=== PATIENT | female | born 1960 | race Two or more races ===

== ENCOUNTER 2016-11-17 13:38 | Inpatient (IN) | payer MEDICARE, MEDICAID ==
[~2016-11-17] VITALS: Ht 157.5 cm; Wt 68.0 kg
[2016-11-17 14:00] VITALS: BP 144/77
[2016-11-17 14:04] LABS: ABG ALLEN TEST POSITIVE; ABG PCO2 46.2 mmHg (35.0-45.0)
--- NOTE | 2016-11-17 14:08 | Emergency Room Report ---
History of Present Illness General Chief Complaint: Chest Pain Source: Patient, EMS Present Illness HPI Patient is a 56-year-old female who presented after increased chest pain. The patient gradual onset of symptoms onset was during dialysis. Patient prior history of kidney disease. Patient had previous workup for similar symptoms and without any findings. Patient is normally dialyzed Tuesday and Tuesday. The patient reports having sharp pain worse with deep breath. The patient was given aspirin and nitroglycerin by paramedics. Allergies: Coded Allergies: ACETAMINOPHEN (Verified Allergy, Unknown, 11/17/16) Patient History Past Medical History: see triage record Reviewed Nursing Documentation: PMH: Agreed, PSxH: Agreed Nursing Documentation-PMH Past Medical History: No History, Except For Hx Hypertension: Yes - Hypothyroidism Hx Diabetes: Yes Hx Gastrointestinal Problems: Yes - GERD Hx Dialysis: Yes - M, W, F, ESRD History Of Psychiatric Problem: Yes - Depression Review of Systems All Other Systems: negative except mentioned in HPI Physical Exam Vital Signs Date Time Temp Pulse Resp B/P Pulse Ox O2 Delivery O2 Flow Rate FiO2 11/17/16 13:39 97.5 68 16 144/77 99 Room Air 11/17/16 14:00 2.0 Sp02 EP Interpretation: reviewed, normal General Appearance: normal inspection, well appearing, no apparent distress, alert, GCS 15 Head: atraumatic ENT: normal ENT inspection, hearing grossly normal, normal voice Neck: normal inspection, full range of motion, supple, no bony tend Respiratory: normal inspection, lungs clear, normal breath sounds, no respiratory distress, no retraction, no wheezing Cardiovascular #1: regular rate, rhythm, no edema Gastrointestinal: normal inspection, normal bowel sounds, non tender, soft, no guarding, no hernia Genitourinary: no CVA tenderness Musculoskeletal: normal inspection, back normal, normal range of motion Neurologic: normal inspection, alert, oriented x3, responsive, lathing supervisor III-XII nml as tested, speech normal Psychiatric: normal inspection, judgement/insight normal, mood/affect normal Skin: normal inspection, normal color, no rash Medical Decision Making Diagnostic Impression: Primary Impression: Chest pain Additional Impressions: ACS (acute coronary syndrome) Hyperkalemia ER Course Patient presented for chest pain. Differential diagnosis included but was not limited to acute coronary syndrome, pulmonary embolism, pneumonia, aortic dissection, shingles, pneumothorax, aortic dissection, esophageal rupture, pericarditis. Because of complexity of patient's case laboratory testing and imaging studies were ordered. EKG interpreted by me showed normal sinus rhythm with a rate of [address] or T wave changes.Laboratory testing showed mild hyperkalemia. The patient was noted to have a history of prior end-stage renal disease and was at least partially dialyzed earlier in the day. Chest x-ray one view interpreted by me showed normal cardiac size without evident infiltrate without pneumothorax. The patient was given Toradol and morphine for pain. The patient has multiple risk factors for coronary disease. A bedside ultrasound showed no evidence of pericardial effusion. Patient is admitted for further evaluation of chest pain and shortness of breath and treatment of hyperkalemia. Patient was discussed with Dr. Pittman for inpatient management. Labs Test 11/17/16 13:42 11/17/16 14:18 Arterial Blood pH 7.460 (7.350-7.450) Arterial Blood Partial Pressure CO2 46.2 mmHg (35.0-45.0) Arterial Blood Partial Pressure O2 112.8 mmHg (75.0-100.0) Arterial Blood HCO3 32.7 mmol/L (22.0-26.0) Arterial Blood Oxygen Saturation 98.1 % (92.0-98.0) Arterial Blood Base Excess 8.0 Rahat Test Positive White Blood Count 7.5 K/UL (4.8-10.8) Red Blood Count 4.40 M/UL (4.20-5.40) Hemoglobin 13.4 G/DL (12.0-16.0) Hematocrit 41.5 % (37.0-47.0) Mean Corpuscular Volume 94 FL (80-99) Mean Corpuscular Hemoglobin 30.4 PG (27.0-31.0) Mean Corpuscular Hemoglobin Concent 32.3 G/DL (32.0-36.0) Red Cell Distribution Width 13.8 % (11.6-14.8) Platelet Count 254 K/UL (150-450) Mean Platelet Volume 6.7 FL (6.5-10.1) Neutrophils (%) (Auto) 58.1 % (45.0-75.0) Lymphocytes (%) (Auto) 32.6 % (20.0-45.0) Monocytes (%) (Auto) 5.7 % (1.0-10.0) Eosinophils (%) (Auto) 2.6 % (0.0-3.0) Basophils (%) (Auto) 1.0 % (0.0-2.0) EKG Diagnostic Results Rate: normal Rhythm: NSR ST Segments: no acute changes ASA given to the pt in ED: No - ems Rhythm Strip Diag. Results EP Interpretation: yes Rhythm: NSR, no PVC's, no ectopy, other Chest X-Ray Diagnostic Results EP Interpretation: Yes Findings: no consolidation, no effusion, no pneumothorax, no acute cardiopulmonary disease Number of Views: 1 Last Vital Signs Date Time Temp Pulse Resp B/P Pulse Ox O2 Delivery O2 Flow Rate FiO2 11/17/16 14:00 68 16 Nasal Cannula 2.0 11/17/16 14:00 97.5 144/77 99 Status: unchanged Disposition: ADMITTED INPATIENT Condition: Serious Wade Watson Nov 17, 2016 14:08
[2016-11-17] MEDS ORDERED: Morphine Sulfate 2mg/ml Inj IVP ONE (14:30)
[2016-11-17] MEDS ORDERED: DuoNeb 0.5-3(2.5)mg/3ml neb HHN ONE (14:30)
[2016-11-17 14:32] LABS: EOSINOPHILS % (AUTO) 2.6 % (0.0-3.0); LYMPHOCYTES % (AUTO) 32.6 % (20.0-45.0); MEAN CORPUSCULAR HEMOGLOBIN 30.4 PG (27.0-31.0); MEAN CORPUSCULAR HGB CONC 32.3 G/DL (32.0-36.0); MEAN CORPUSCULAR VOLUME 94 FL (80-99); MEAN PLATELET VOLUME 6.7 FL (6.5-10.1); MONOCYTES % (AUTO) 5.7 % (1.0-10.0); NEUTROPHILS % (AUTO) 58.1 % (45.0-75.0); PLATELET COUNT 254 K/UL (150-450); RED CELL DISTRIBUTION WIDTH 13.8 % (11.6-14.8); WHITE BLOOD COUNT 7.5 K/UL (4.8-10.8)
[2016-11-17 14:37] VITALS: BP 151/65
[2016-11-17] MEDS ORDERED: UNOBMED (14:42)
[2016-11-17] MEDS ORDERED: DIOVAN160 MG ORAL (14:51)
[2016-11-17] MEDS ORDERED: HYDRALAZINE HCL50 MG ORAL (14:51)
[2016-11-17] MEDS ORDERED: COLACE100 MG ORAL (14:51)
[2016-11-17] MEDS ORDERED: AMLODIPINE BESY10 MG ORAL (14:51)
[2016-11-17] MEDS ORDERED: ATORVASTATIN CA40 MG ORAL (14:51)
[2016-11-17 14:54] LABS: TROPONIN I < 0.30 ng/mL (<=0.30)
[2016-11-17] MEDS ORDERED: RENVELA0.8 GM ORAL (14:54)
[2016-11-17] MEDS ORDERED: METOPROLOL TART25 MG ORAL (14:54)
[2016-11-17] MEDS ORDERED: PANTOPRAZOLE SO40 MG ORAL (14:54)
[2016-11-17] MEDS ORDERED: LEVEMIR100 UNIT/1 SUBQ (14:54)
[2016-11-17] MEDS ORDERED: TRAMADOL HCL50 MG ORAL (14:54)
[2016-11-17] MEDS ORDERED: [UNRECOGNIZED DRUG - OTHER] ORAL (14:55)
[2016-11-17 14:57] LABS: ALBUMIN/GLOBULIN RATIO 1.1 (1.0-2.7); CALCIUM 9.6 mg/dL (8.6-10.2); GLOMERULAR FILTRATION RATE 9.1 mL/min (>60); POTASSIUM 5.2 mEQ/L (3.4-4.9); TOTAL PROTEIN 8.1 g/dL (6.6-8.7)
[2016-11-17 15:08] LABS: CKMB 5.5 ng/mL (< 3.8)
[2016-11-17] MEDS ORDERED: Ketorolac 30mg Inj IV ONE (15:30)
[2016-11-17] MEDS ORDERED: Sodium Polystyrene Sulfonate 15gm Powder ORAL ONE (15:30)
--- NOTE | 2016-11-17 15:52 | Diagnostic Imaging Report ---
Indication: Breath Technique: Single portable AP view of the chest. Findings: Comparison: None. The bones and extra pulmonary soft tissues, cardiomediastinal silhouette, pulmonary vasculature and parenchyma, and pleural surfaces are unremarkable. IMPRESSION: Negative portable AP chest.
[2016-11-17 16:09] VITALS: BP 161/57
[2016-11-17] MEDS ORDERED: Miralax 17gm pkt ORAL PRN (18:00)
[2016-11-17] MEDS ORDERED: Nitroglycerin Subl 0.4mg tab (Bottle Of 25) SL PRN (18:15)
--- NOTE | 2016-11-17 18:16 | History and Physical ---
History of Present Illness General Date patient seen: Nov 17, 2016 Time patient seen: 18:16 Reason for Hospitalization: Chest Pain Present Illness HPI 56yo female with pmh of ESRD on HD (MWF), DM, HTN, HLD who presents w/ chest pain. Pt c/o L sided sharp sensation in chest that started abt 1/2 way through dialysis today. She has never had chest pain before. She denies associated f/c, n/v, cough, abd pain. Occasional SOB, palpitations, dizziness. She states she has been stressed and anxious recently since her daughter is trying to send her to a [facility]. She lives w/ her sister. She is functional and able to do all ADLs on own. She does not exercise much. Allergies: Coded Allergies: ACETAMINOPHEN (Verified Allergy, Unknown, 11/17/16) Medication History Scheduled Amlodipine Besylate* (Amlodipine Besylate*), 10 MG ORAL DAILY, (Reported) Atorvastatin Calcium* (Atorvastatin Calcium*), 40 MG ORAL BEDTIME, (Reported) Docusate Sodium* (Colace*), 100 MG ORAL BID, (Reported) Hydralazine Hcl* (Hydralazine Hcl*), 50 MG ORAL QID, (Reported) Insulin Detemir (Levemir), 12 UNITS SUBQ BID, (Reported) Metoprolol Tartrate* (Metoprolol Tartrate*), 25 MG ORAL EVERY 12 HOURS, ( Reported) Pantoprazole* (Pantoprazole*), 40 MG ORAL DAILY, (Reported) Sevelamer Carbonate* (Renvela*), 1,600 MG ORAL THREE TIMES A DAY, (Reported) Valsartan (Diovan), 320 MG ORAL DAILY, (Reported) [Aspirin Free Anacin], 1 TAB ORAL DAILY, (Reported) Scheduled PRN Tramadol Hcl* (Ultram*), 50 MG ORAL DAILY PRN for For Pain, (Reported) Miscellaneous Medications Unable to Obtain Medications (Unable To Obtain Meds), (Reported) Patient History History Provided By: Patient Healthcare decision maker Sister Resuscitation status FULL CODE Advanced Directive on File Past Medical/Surgical History Past Medical/Surgical History: (1) ESRD (end stage renal disease) on dialysis (2) HTN (hypertension) (3) HLD (hyperlipidemia) (4) Diabetes Family History Family History: Patient reports no known family medical history. Social History Social History: (1) No significant social history Review of Systems All Other Systems: negative except mentioned in HPI ROS Narrative CONSTITUTIONAL: No weight loss, fever, chills, weakness or fatigue. HEENT: Eyes: No visual loss, blurred vision, double vision or yellow sclerae. Ears, Nose, Throat: No hearing loss, sneezing, congestion, runny nose or sore throat. SKIN: No rash or itching. CARDIOVASCULAR: + chest pain, chest pressure or chest discomfort. No palpitations or edema. RESPIRATORY: No shortness of breath, cough or sputum. GASTROINTESTINAL: No anorexia, nausea, vomiting or diarrhea. No abdominal pain or blood. NEUROLOGICAL: No headache, dizziness, syncope, paralysis, ataxia, numbness or tingling in the extremities. No change in bowel or bladder control. MUSCULOSKELETAL: No muscle, back pain, joint pain or stiffness. HEMATOLOGIC: No anemia, bleeding or bruising. LYMPHATICS: No enlarged nodes. No history of splenectomy. PSYCHIATRIC: No history of depression or anxiety. ENDOCRINOLOGIC: No reports of sweating, cold or heat intolerance. No polyuria or polydipsia. ALLERGIES: No history of asthma, hives, eczema or rhinitis. Physical Exam Physical Exam Narrative General: alert, cooperative, no distress, appears stated age Head: normocephalic, without obvious abnormality, atraumatic Eyes: conjunctivae/corneas clear. PERRL, EOM's intact Throat: lips, mucosa, and tongue normal. MMM Neck: supple, symmetrical, trachea midline, and no JVD Lungs: clear to auscultation bilaterally Heart: regular rate and rhythm, S1, S2 normal, no murmur, click, rub or gallop Abdomen: soft, non-tender, non-distended, bowel sounds normal; no masses or organomegaly Extremities: extremities normal, atraumatic, no cyanosis or edema Pulses: 2+ and symmetric Skin: skin color, texture, turgor normal; no rashes or lesions Neurologic: grossly normal, no focal deficits Last 24 Hour Vital Signs Date Time Temp Pulse Resp B/P Pulse Ox O2 Delivery O2 Flow Rate FiO2 11/17/16 16:09 97.4 57 17 161/57 98 Nasal Cannula 2.0 11/17/16 16:03 97.4 11/17/16 14:52 97.5 11/17/16 14:38 59 20 100 Nasal Cannula 2.0 11/17/16 14:37 97.5 64 15 151/65 100 Nasal Cannula 2.0 11/17/16 14:34 59 20 100 Nasal Cannula 2.0 11/17/16 14:00 68 16 Nasal Cannula 2.0 11/17/16 14:00 97.5 16 144/77 99 Room Air 11/17/16 13:39 97.5 68 16 144/77 99 Room Air Laboratory Tests Test 11/17/16 13:42 11/17/16 14:18 Arterial Blood pH 7.460 (7.350-7.450) Arterial Blood Partial Pressure CO2 46.2 mmHg (35.0-45.0) H Arterial Blood Partial Pressure O2 112.8 mmHg (75.0-100.0) H Arterial Blood HCO3 32.7 mmol/L (22.0-26.0) H Arterial Blood Oxygen Saturation 98.1 % (92.0-98.0) H Arterial Blood Base Excess 8.0 Rahat Test Positive White Blood Count 7.5 K/UL (4.8-10.8) Red Blood Count 4.40 M/UL (4.20-5.40) Hemoglobin 13.4 G/DL (12.0-16.0) Hematocrit 41.5 % (37.0-47.0) Mean Corpuscular Volume 94 FL (80-99) Mean Corpuscular Hemoglobin 30.4 PG (27.0-31.0) Mean Corpuscular Hemoglobin Concent 32.3 G/DL (32.0-36.0) Red Cell Distribution Width 13.8 % (11.6-14.8) Platelet Count 254 K/UL (150-450) Mean Platelet Volume 6.7 FL (6.5-10.1) Neutrophils (%) (Auto) 58.1 % (45.0-75.0) Lymphocytes (%) (Auto) 32.6 % (20.0-45.0) Monocytes (%) (Auto) 5.7 % (1.0-10.0) Eosinophils (%) (Auto) 2.6 % (0.0-3.0) Basophils (%) (Auto) 1.0 % (0.0-2.0) D-Dimer 898 ng/mL (<500) H Sodium Level 142 mEQ/L (135-145) Potassium Level 5.2 mEQ/L (3.4-4.9) H Chloride Level 95 mEQ/L (98-107) L Carbon Dioxide Level 34 mEQ/L (20-30) H Anion Gap 13 (5-15) Blood Urea Nitrogen 28 mg/dL (7-23) H Creatinine 5.0 mg/dL (0.5-0.9) H Estimat Glomerular Filtration Rate 9.1 mL/min (>60) Glucose Level 124 mg/dL (74-106) H Calcium Level 9.6 mg/dL (8.6-10.2) Total Bilirubin 0.4 mg/dL (0.0-1.2) Aspartate Amino Transf (AST/SGOT) 22 U/L (5-40) Alanine Aminotransferase (ALT/SGPT) 12 U/L (3-33) Alkaline Phosphatase 160 U/L (35-104) H Total Creatine Kinase 125 U/L (26-140) Creatine Kinase MB 5.5 ng/mL (< 3.8) H Creatine Kinase MB Relative Index 4.4 Troponin I < 0.30 ng/mL (<=0.30) Total Protein 8.1 g/dL (6.6-8.7) Albumin 4.4 g/dL (3.5-5.2) Globulin 3.7 g/dL Albumin/Globulin Ratio 1.1 (1.0-2.7) Height (Feet): 5 Height (Inches): 2.00 Weight (Pounds): 150 Medications Current Medications Medications (Trade) Dose Ordered Sig/Selena Route PRN Reason Start Time Stop Time Status Last Admin Dose Admin Acetaminophen (Tylenol) 650 mg Q4H PRN ORAL Mild Pain (Pain Scale 1-3) 11/17/16 18:00 12/17/16 17:59 UNV Amlodipine Besylate (Norvasc) 10 mg DAILY ORAL 11/18/16 09:00 12/18/16 08:59 UNV Aspirin (ASA) 81 mg DAILY ORAL 11/18/16 09:00 12/18/16 08:59 UNV Aspirin (ASA) 325 mg ONCE ONCE ORAL 11/17/16 18:15 11/17/16 18:16 UNV Atorvastatin Calcium (Lipitor) 80 mg BEDTIME ORAL 11/17/16 21:00 12/17/16 20:59 UNV Bisacodyl (Dulcolax) 10 mg DAILYPRN PRN RECTAL Constipation 11/17/16 18:00 12/17/16 17:59 Docusate Sodium (Colace) 100 mg EVERY 12 HOURS ORAL 11/17/16 21:00 12/17/16 20:59 Hydralazine HCl (Apresoline) 50 mg QID ORAL 11/17/16 21:00 12/17/16 20:59 UNV Magnesium Hydroxide (Mom) 30 ml HSPRN PRN ORAL Constipation 11/17/16 21:00 12/17/16 20:59 Morphine Sulfate (Morphine Sulfate) 2 mg Q6H PRN IVP Moderate Pain (Pain Scale 4-6) 11/17/16 18:00 11/24/16 17:59 Morphine Sulfate (Morphine Sulfate) 4 mg Q6H PRN IVP Severe Pain (Pain Scale 7-10) 11/17/16 18:00 11/24/16 17:59 Nitroglycerin (Ntg) 0.4 mg Q5MIN X 3 DOSES PRN SL Prn Chest Pain 11/17/16 18:15 12/17/16 18:14 Polyethylene Glycol (Miralax) 17 gm DAILYPRN PRN ORAL Constipation 11/17/16 18:00 12/17/16 17:59 Assessment/Plan Problem List: (1) Chest pain ICD Codes: R07.9 - Chest pain, unspecified SNOMED: 58420775 (2) Hyperkalemia ICD Codes: E87.5 - Hyperkalemia SNOMED: 67840824 (3) ESRD (end stage renal disease) on dialysis ICD Codes: N18.6 - End stage renal disease; Z99.2 - Dependence on renal dialysis SNOMED: 656539733 (4) HTN (hypertension) ICD Codes: I10 - Essential (primary) hypertension SNOMED: 31934869 (5) HLD (hyperlipidemia) ICD Codes: E78.5 - Hyperlipidemia, unspecified SNOMED: 64585117 (6) Diabetes ICD Codes: E11.9 - Type 2 diabetes mellitus without complications SNOMED: 46064206 Status: stable Assessment/Plan Chest pain - ddx includes anginal/ACS vs GI etiology vs MSK vs anxiety - Admit to tele - Trend trop/EKG - Check TTE - Cardiology consulted - s/p kayexylate in ED for hyperkalemia - Nephrology consulted for continuation of HD in-house - Con ASA, statin - Cont home BP meds - Cont sevelamer - CAIO DVT Prophylaxis: SCD, HSQ Code Status: Full Hospital Classification Declaration: Based on this initial evaluation, and depending on the patient's clinical course, I anticipate that this patient will require hospitalization for 2-3 days for chest pain, hyperkalemia, and close respiratory/hemodynamic monitoring. Disposition: Once the patient is stable to leave the hospital, I anticipate the patient will likely be discharged to the following environment: home with HH vs SNF I spent 70 minutes on this patient's case, and 38 minutes were dedicated to counseling and/or care coordination. Discussed with patient/family, nursing staff, SW/CM, cardiology regarding clinical status, treatment course, and disposition planning. Time of note may not reflect time of encounter. Fransisco Meyer M.D. Nov 17, 2016 18:16
[2016-11-17 18:39] VITALS: BP 153/59
[2016-11-17 19:52] LABS: BASOPHILS % (AUTO) 1.2 % (0.0-2.0); EOSINOPHILS % (AUTO) 2.2 % (0.0-3.0); LYMPHOCYTES % (AUTO) 29.1 % (20.0-45.0); MEAN CORPUSCULAR HEMOGLOBIN 30.7 PG (27.0-31.0); MEAN CORPUSCULAR HGB CONC 32.9 G/DL (32.0-36.0); MEAN CORPUSCULAR VOLUME 93 FL (80-99); MEAN PLATELET VOLUME 6.3 FL (6.5-10.1); MONOCYTES % (AUTO) 9.5 % (1.0-10.0); NEUTROPHILS % (AUTO) 58.1 % (45.0-75.0); PLATELET COUNT 221 K/UL (150-450); RED BLOOD COUNT 3.92 M/UL (4.20-5.40)
[2016-11-17 20:05] VITALS: BP 145/57
[2016-11-17 20:35] VITALS: BP 145/58
[2016-11-17] MEDS ORDERED: Milk of Magnesia 30ml Ud ORAL PRN (21:00)
[2016-11-17] MEDS: Docusate 100mg cap ORAL SCH (21:08)
[2016-11-17] MEDS: HydrALAZINE 50mg tab ORAL SCH (21:08)
[2016-11-17] MEDS: Metoprolol 25mg tab ORAL SCH (21:08)
[2016-11-17] MEDS: Atorvastatin 80mg tab ORAL SCH (21:08)
[2016-11-17] MEDS: Renvela 800mg Pkt ORAL SCH (21:08)
[2016-11-17] MEDS: NovoLOG Insulin Flexpen SUBQ SCH (21:11)
--- NOTE | 2016-11-17 21:58 | Cardiology Progress Note ---
Assessment/Plan Assessment/Plan [id number] chest pain dm htn hypre lipidmeia esrd depression ekg non specific pt poor histrial multipl rf of rcad old record "neg perfusion november 2014" will have adenosine cardiolite stress test if prepeat torp neg echo Objective Last 24 Hour Vital Signs Date Time Temp Pulse Resp B/P Pulse Ox O2 Delivery O2 Flow Rate FiO2 11/17/16 21:08 65 145/58 11/17/16 21:08 145/58 11/17/16 20:35 97.5 65 20 145/58 97 Room Air 11/17/16 20:07 97.6 66 21 145/57 98 Nasal Cannula 2.0 11/17/16 20:05 97.6 66 21 145/57 98 Nasal Cannula 2.0 11/17/16 18:39 97.3 63 20 153/59 98 Nasal Cannula 2.0 11/17/16 16:09 97.4 57 17 161/57 98 Nasal Cannula 2.0 11/17/16 16:03 97.4 11/17/16 14:52 97.5 11/17/16 14:38 59 20 100 Nasal Cannula 2.0 11/17/16 14:37 97.5 64 15 151/65 100 Nasal Cannula 2.0 11/17/16 14:34 59 20 100 Nasal Cannula 2.0 11/17/16 14:00 68 16 Nasal Cannula 2.0 11/17/16 14:00 97.5 16 144/77 99 Room Air 11/17/16 13:39 97.5 68 16 144/77 99 Room Air Laboratory Tests Test 11/17/16 13:42 11/17/16 14:18 11/17/16 19:35 Arterial Blood pH 7.460 (7.350-7.450) Arterial Blood Partial Pressure CO2 46.2 mmHg (35.0-45.0) H Arterial Blood Partial Pressure O2 112.8 mmHg (75.0-100.0) H Arterial Blood HCO3 32.7 mmol/L (22.0-26.0) H Arterial Blood Oxygen Saturation 98.1 % (92.0-98.0) H Arterial Blood Base Excess 8.0 Rahat Test Positive White Blood Count 7.5 K/UL (4.8-10.8) 7.0 K/UL (4.8-10.8) Red Blood Count 4.40 M/UL (4.20-5.40) 3.92 M/UL (4.20-5.40) L Hemoglobin 13.4 G/DL (12.0-16.0) 12.0 G/DL (12.0-16.0) Hematocrit 41.5 % (37.0-47.0) 36.6 % (37.0-47.0) L Mean Corpuscular Volume 94 FL (80-99) 93 FL (80-99) Mean Corpuscular Hemoglobin 30.4 PG (27.0-31.0) 30.7 PG (27.0-31.0) Mean Corpuscular Hemoglobin Concent 32.3 G/DL (32.0-36.0) 32.9 G/DL (32.0-36.0) Red Cell Distribution Width 13.8 % (11.6-14.8) 14.0 % (11.6-14.8) Platelet Count 254 K/UL (150-450) 221 K/UL (150-450) Mean Platelet Volume 6.7 FL (6.5-10.1) 6.3 FL (6.5-10.1) L Neutrophils (%) (Auto) 58.1 % (45.0-75.0) 58.1 % (45.0-75.0) Lymphocytes (%) (Auto) 32.6 % (20.0-45.0) 29.1 % (20.0-45.0) Monocytes (%) (Auto) 5.7 % (1.0-10.0) 9.5 % (1.0-10.0) Eosinophils (%) (Auto) 2.6 % (0.0-3.0) 2.2 % (0.0-3.0) Basophils (%) (Auto) 1.0 % (0.0-2.0) 1.2 % (0.0-2.0) D-Dimer 898 ng/mL (<500) H Sodium Level 142 mEQ/L (135-145) Potassium Level 5.2 mEQ/L (3.4-4.9) H Chloride Level 95 mEQ/L (98-107) L Carbon Dioxide Level 34 mEQ/L (20-30) H Anion Gap 13 (5-15) Blood Urea Nitrogen 28 mg/dL (7-23) H Creatinine 5.0 mg/dL (0.5-0.9) H Estimat Glomerular Filtration Rate 9.1 mL/min (>60) Glucose Level 124 mg/dL (74-106) H Calcium Level 9.6 mg/dL (8.6-10.2) Total Bilirubin 0.4 mg/dL (0.0-1.2) Aspartate Amino Transf (AST/SGOT) 22 U/L (5-40) Alanine Aminotransferase (ALT/SGPT) 12 U/L (3-33) Alkaline Phosphatase 160 U/L (35-104) H Total Creatine Kinase 125 U/L (26-140) Creatine Kinase MB 5.5 ng/mL (< 3.8) H Creatine Kinase MB Relative Index 4.4 Troponin I < 0.30 ng/mL (<=0.30) Total Protein 8.1 g/dL (6.6-8.7) Albumin 4.4 g/dL (3.5-5.2) Globulin 3.7 g/dL Albumin/Globulin Ratio 1.1 (1.0-2.7) MARY CORBETT Nov 17, 2016 21:58
--- NOTE | 2016-11-17 23:38 | Consultation ---
DATE OF CONSULTATION: 11/17/2016 CARDIOLOGY CONSULTATION CONSULTING PHYSICIAN: Michael Aceves M.D. REFERRING PHYSICIAN: Anish Marrufo M.D. REASON FOR REFERRAL: Chest pain. HISTORY OF PRESENT ILLNESS: This is a middle-aged female with history of multiple medical problems as delineated below, who presented with chief complaint of chest pain and sharp sensation in the left side of the chest. Really no relieving or exacerbating factors were noted by the patient. She really does not know how long the pain lasts. She thinks on questioning of approximately one hour. She finally presented to the emergency room here and she has been evaluated and admitted. She has no orthopnea. She uses two pillows. She does occasionally get woken up in the middle of the night because of shortness of breath, walks, drink some water, and then goes back to bed. She has occasional dizziness on standing. She has occasional palpitations. PAST MEDICAL HISTORY: Positive for history of cardiomyopathy reportedly. Prior records from different hospitals indicate that the patient once had an ejection fraction of 40% to 45% to subsequently 50% to 55%. She has end-stage renal disease, on hemodialysis, diabetes mellitus type 2, chronic migraines, gastroesophageal reflux disease, hypothyroidism, and depression. She has had a history of cholecystectomy, ulnar nerve decompression, and dialysis port placement. No history of heart attack. No cancer. No stroke. No hepatitis. No tuberculosis. She does indicate she has asthma. She does have history of ulcers. She does have history of thyroid problems. Does not have HIV and she has not been told she has any problems with her heart before she says. SOCIAL HISTORY: She does not smoke. Does not drink alcoholic beverages at this time. No drug use. She is originally from [place]. REVIEW OF SYSTEMS: Gastrointestinal: She denies any nausea, vomiting, diarrhea, or constipation. Genitourinary: Burning on urination. She does make urine despite hemodialysis. Pulmonary: Denies any coughing or wheezing. Constitutional: She gets cold sometimes. PHYSICAL EXAMINATION: GENERAL: Shows to be the middle-aged female, in no apparent distress. NECK: Supple. No jugular venous distention. There is a Osullivan in the left side of the neck may be from her shunt. LUNGS: Appear to be relatively clear to auscultation and percussion. CARDIAC: S1 is normal. S2 is normal. Systolic ejection murmur is noted in the aortic band. There is no RV lift, heaves, thrills, or gallops noted. ABDOMEN: Soft and nontender. Positive bowel sounds. EXTREMITIES: There is no edema. She has a shunt in the left arm. NEUROLOGICALLY: She is awake, alert, and responsive. LABORATORY AND DIAGNOSTIC DATA: White count of 5.7, hemoglobin 12, and platelet count of 221,000. Blood gases, pH of 7.4, pCO2 of 43, pO2 of 112, bicarb 33, and saturation 98%. Sodium 140, potassium 5.2, chloride 95, bicarbonate 24, BUN of 20, creatinine 5.0, and glucose of 124. Liver function tests are normal. Troponin first set this afternoon was less than 0.3. D-dimer is 898. She had a chest x-ray performed in the emergency room that shows basically negative portable x-ray. She has had electrocardiogram performed that shows basically a sinus rhythm and really no significant ST-T wave abnormalities. There is some nonspecific T-wave inversion aVL. ASSESSMENT: 1. Chest pain. 2. History of previous chest pain evaluation by customer project manager, unknown details. 3. End-stage renal disease, on hemodialysis. 4. Questionable report of left ventricular dysfunction. 5. Diabetes mellitus type 2. 6. Gastroesophageal reflux disease. 7. Hypothyroidism. 8. Depression. PLAN: This patient was seen in cardiac consultation. The patient has multiple risk factors of coronary artery disease, not sure about the details of her prior workup, although there is a note in the chart from 2014 indicating that in November 2014, the patient had subsided a stress test, which was found to have no myocardial perfusion defect at that time. Nevertheless because of her persistent symptoms, it is reasonable to have perfusion imaging in light of multiple risk factors of coronary artery disease and the patient is being somewhat a poor historian to make sure there is no underlying coronary artery disease despite the fact that, especially if she has no evidence of myocardial infarction on this study on this hospitalization. An echocardiogram will be ordered for evaluation of systolic function and aortic valve. The patient will undergo an adenosine perfusion imaging. Michael Aceves M.D. DR: [place] JOB#: [id number] CC:
[2016-11-18 00:21] VITALS: BP 106/58
[2016-11-18 00:41] LABS: TROPONIN I < 0.30 ng/mL (<=0.30)
[2016-11-18 04:07] VITALS: BP 132/68
[2016-11-18] MEDS: Morphine Sulfate 2mg/ml Inj IVP PRN ×2 (05:27→11:38)
[2016-11-18] MEDS: HydrALAZINE 50mg tab ORAL SCH ×4 (05:39→22:12)
[2016-11-18] MEDS: NovoLOG Insulin Flexpen SUBQ SCH ×4 (06:12→21:00)
[2016-11-18 07:50] LABS: TROPONIN I < 0.30 ng/mL (<=0.30)
[2016-11-18 07:51] LABS: BASOPHILS % (AUTO) 1.6 % (0.0-2.0); EOSINOPHILS % (AUTO) 3.9 % (0.0-3.0); LYMPHOCYTES % (AUTO) 36.4 % (20.0-45.0); MEAN CORPUSCULAR HEMOGLOBIN 31.1 PG (27.0-31.0); MEAN CORPUSCULAR HGB CONC 32.3 G/DL (32.0-36.0); MEAN CORPUSCULAR VOLUME 96 FL (80-99); MONOCYTES % (AUTO) 10.5 % (1.0-10.0); NEUTROPHILS % (AUTO) 47.6 % (45.0-75.0); PLATELET COUNT 192 K/UL (150-450); RED BLOOD COUNT 3.73 M/UL (4.20-5.40); RED CELL DISTRIBUTION WIDTH 13.9 % (11.6-14.8); WHITE BLOOD COUNT 5.7 K/UL (4.8-10.8)
[2016-11-18 08:08] LABS: CHOLESTEROL/HDL RATIO 1.9 (3.3-4.4); GLOMERULAR FILTRATION RATE 6.1 mL/min (>60); POTASSIUM 5.6 mEQ/L (3.4-4.9)
[2016-11-18 08:14] LABS: THYROID STIMULATING HORMONE 6.11 uIU/mL (0.300-4.500)
[2016-11-18] MEDS: Metoprolol 25mg tab ORAL SCH ×2 (08:21→21:00)
[2016-11-18 08:22] VITALS: BP 116/57
[2016-11-18] MEDS: Aspirin Baby 81mg ORAL SCH (08:57)
[2016-11-18] MEDS: Docusate 100mg cap ORAL SCH ×3 (08:57→17:31)
[2016-11-18] MEDS: Renvela 800mg Pkt ORAL SCH ×3 (08:58→17:31)
--- NOTE | 2016-11-18 10:17 | General Progress Note ---
Assessment/Plan Problem List: (1) Chest pain ICD Codes: R07.9 - Chest pain, unspecified SNOMED: 92441187 (2) Hyperkalemia ICD Codes: E87.5 - Hyperkalemia SNOMED: 77762852 (3) ESRD (end stage renal disease) on dialysis ICD Codes: N18.6 - End stage renal disease; Z99.2 - Dependence on renal dialysis SNOMED: 964065064 (4) HTN (hypertension) ICD Codes: I10 - Essential (primary) hypertension SNOMED: 18680256 (5) HLD (hyperlipidemia) ICD Codes: E78.5 - Hyperlipidemia, unspecified SNOMED: 38368440 (6) Diabetes ICD Codes: E11.9 - Type 2 diabetes mellitus without complications SNOMED: 66181392 Status: stable Assessment/Plan Chest pain - ddx includes anginalvs GI etiology vs MSK vs anxiety. Trop/EKG neg x3 so no e/o ACS. - Monitor on tele - F/u TTE - F/u MPI - Appreciate cardiology rec's - s/p kayexylate in ED for hyperkalemia - Nephrology consulted for continuation of HD in-house - Con ASA, statin - Cont home BP meds - Cont sevelamer - CAIO DVT Prophylaxis: SCD, HSQ Code Status: Full Hospital Classification Declaration: Based on this initial evaluation, and depending on the patient's clinical course, I anticipate that this patient will require hospitalization for 1-2 days for chest pain, hyperkalemia, and close respiratory/hemodynamic monitoring. Disposition: Once the patient is stable to leave the hospital, I anticipate the patient will likely be discharged to the following environment: home with HH vs SNF I spent 42 minutes on this patient's case, and 22 minutes were dedicated to counseling and/or care coordination. Discussed with patient/family, nursing staff, SW/CM, cardiology regarding clinical status, treatment course, and disposition planning. Time of note may not reflect time of encounter. Subjective Date patient seen: Nov 18, 2016 Time patient seen: 10:17 ROS Limited/Unobtainable: No Constitutional: Reports: no symptoms HEENT: Reports: no symptoms Cardiovascular: Reports: no symptoms Respiratory: Reports: no symptoms Gastrointestinal/Abdominal: Reports: no symptoms Genitourinary: Reports: no symptoms Neurologic/Psychiatric: Reports: no symptoms Endocrine: Reports: no symptoms Hematologic/Lymphatic: Reports: no symptoms Allergies: Coded Allergies: ACETAMINOPHEN (Verified Allergy, Unknown, 11/17/16) All Systems: reviewed and negative except above Subjective No acute o/n events Chest pain improved Plan for MPI today Objective Last 24 Hour Vital Signs Date Time Temp Pulse Resp B/P Pulse Ox O2 Delivery O2 Flow Rate FiO2 11/18/16 08:58 65 116/57 11/18/16 08:22 98.1 65 18 116/57 97 Room Air 11/18/16 08:21 65 116/57 11/18/16 05:39 132/68 11/18/16 04:07 98.5 84 18 132/68 96 Room Air 11/18/16 04:00 61 11/18/16 00:21 98.7 104 18 106/58 98 Room Air 11/18/16 00:00 63 11/18/16 00:00 106/58 11/17/16 21:08 65 145/58 11/17/16 21:08 145/58 11/17/16 20:35 97.5 65 20 145/58 97 Room Air 11/17/16 20:07 97.6 66 21 145/57 98 Nasal Cannula 2.0 11/17/16 20:05 97.6 66 21 145/57 98 Nasal Cannula 2.0 11/17/16 18:39 97.3 63 20 153/59 98 Nasal Cannula 2.0 11/17/16 16:09 97.4 57 17 161/57 98 Nasal Cannula 2.0 11/17/16 16:03 97.4 11/17/16 14:52 97.5 11/17/16 14:38 59 20 100 Nasal Cannula 2.0 11/17/16 14:37 97.5 64 15 151/65 100 Nasal Cannula 2.0 11/17/16 14:34 59 20 100 Nasal Cannula 2.0 11/17/16 14:00 68 16 Nasal Cannula 2.0 11/17/16 14:00 97.5 16 144/77 99 Room Air 11/17/16 13:39 97.5 68 16 144/77 99 Room Air Intake and Output 11/17/16 11/18/16 19:00 07:00 Intake Total 90 ml 240 ml Balance 90 ml 240 ml Intake Oral 60 ml 240 ml IV Total 30 ml Laboratory Tests 11/17/16 13:42: Arterial Blood pH 7.460H, Arterial Blood Partial Pressure CO2 46.2H, Arterial Blood Partial Pressure O2 112.8H, Arterial Blood HCO3 32.7H, Arterial Blood Oxygen Saturation 98.1H, Arterial Blood Base Excess 8.0, Rahat Test Positive 11/17/16 14:18: White Blood Count 7.5, Red Blood Count 4.40, Hemoglobin 13.4, Hematocrit 41.5, Mean Corpuscular Volume 94, Mean Corpuscular Hemoglobin 30.4, Mean Corpuscular Hemoglobin Concent 32.3, Red Cell Distribution Width 13.8, Platelet Count 254, Mean Platelet Volume 6.7, Neutrophils (%) (Auto) 58.1, Lymphocytes (%) (Auto) 32.6, Monocytes (%) (Auto) 5.7, Eosinophils (%) (Auto) 2.6, Basophils (%) (Auto ) 1.0, D-Dimer 898H, Sodium Level 142, Potassium Level 5.2H, Chloride Level 95L , Carbon Dioxide Level 34H, Anion Gap 13, Blood Urea Nitrogen 28H, Creatinine 5.0H, Estimat Glomerular Filtration Rate 9.1, Glucose Level 124H, Calcium Level 9.6, Total Bilirubin 0.4, Aspartate Amino Transf (AST/SGOT) 22, Alanine Aminotransferase (ALT/SGPT) 12, Alkaline Phosphatase 160H, Total Creatine Kinase 125, Creatine Kinase MB 5.5H, Creatine Kinase MB Relative Index 4.4, Troponin I < 0.30, Total Protein 8.1, Albumin 4.4, Globulin 3.7, Albumin/ Globulin Ratio 1.1 11/17/16 19:35: White Blood Count 7.0, Red Blood Count 3.92L, Hemoglobin 12.0, Hematocrit 36.6L , Mean Corpuscular Volume 93, Mean Corpuscular Hemoglobin 30.7, Mean Corpuscular Hemoglobin Concent 32.9, Red Cell Distribution Width 14.0, Platelet Count 221, Mean Platelet Volume 6.3L, Neutrophils (%) (Auto) 58.1, Lymphocytes ( %) (Auto) 29.1, Monocytes (%) (Auto) 9.5, Eosinophils (%) (Auto) 2.2, Basophils (%) (Auto) 1.2 11/18/16 00:00: Troponin I < 0.30 11/18/16 06:35: White Blood Count 5.7, Red Blood Count 3.73L, Hemoglobin 11.6L, Hematocrit 35.9L , Mean Corpuscular Volume 96, Mean Corpuscular Hemoglobin 31.1H, Mean Corpuscular Hemoglobin Concent 32.3, Red Cell Distribution Width 13.9, Platelet Count 192, Mean Platelet Volume 7.0, Neutrophils (%) (Auto) 47.6, Lymphocytes (% ) (Auto) 36.4, Monocytes (%) (Auto) 10.5H, Eosinophils (%) (Auto) 3.9H, Basophils (%) (Auto) 1.6, Sodium Level 141, Potassium Level 5.6H, Chloride Level 94L, Carbon Dioxide Level 33H, Anion Gap 14, Blood Urea Nitrogen 41H, Creatinine 7.0H, Estimat Glomerular Filtration Rate 6.1, Glucose Level 89, Hemoglobin A1c 6.5H, Calcium Level 9.0, Troponin I < 0.30, Pro-B-Type Natriuretic Peptide 37217U, Triglycerides Level 102, Cholesterol Level 103, LDL Cholesterol 28L, HDL Cholesterol 55, Cholesterol/HDL Ratio 1.9L, Thyroid Stimulating Hormone (TSH) 6.110H Height (Feet): 5 Height (Inches): 2.00 Weight (Pounds): 150 Objective General: alert, cooperative, no distress, appears stated age Head: normocephalic, without obvious abnormality, atraumatic Eyes: conjunctivae/corneas clear. PERRL, EOM's intact Throat: lips, mucosa, and tongue normal. MMM Neck: supple, symmetrical, trachea midline, and no JVD Lungs: clear to auscultation bilaterally Heart: regular rate and rhythm, S1, S2 normal, no murmur, click, rub or gallop Abdomen: soft, non-tender, non-distended, bowel sounds normal; no masses or organomegaly Extremities: extremities normal, atraumatic, no cyanosis or edema Pulses: 2+ and symmetric Skin: skin color, texture, turgor normal; no rashes or lesions Neurologic: grossly normal, no focal deficits Fransisco Meyer M.D. Nov 18, 2016 10:17
[2016-11-18] MEDS ORDERED: Sodium Polystyrene Sulfonate 15gm Powder ORAL ONE (10:30)
--- NOTE | 2016-11-18 11:13 | Consultation ---
Consult Note Consult Note I was asked to evaluate the patient for dialysis treatment Patient is a 56-year-old female who presented after increased chest pain. The patient gradual onset of symptoms onset was during dialysis. Patient prior history of kidney disease. Patient had previous workup for similar symptoms and without any findings. Patient is normally dialyzed Tuesday and Tuesday. The patient reports having sharp pain worse with deep breath. The patient was given aspirin and nitroglycerin by paramedics. Allergies: ACETAMINOPHEN (Verified Allergy, Unknown, 11/17/16) Past Medical History: No History, Except For Hx Hypertension: Yes - Hypothyroidism Hx Diabetes: Yes Hx Gastrointestinal Problems: Yes - GERD Hx Dialysis: Yes - M, W, F, ESRD History Of Psychiatric Problem: Yes - Depression Patient interviewed and examined- data reviewed. Discussed with knock out hand/Plan status; ESRD ACS High K plan: HD in am- Kayexelate PO now- Renal diet- BP meds adjustments- 2 D echo Per cardiology RAGHAVENDRA ARIZMENDI Nov 18, 2016 11:13
[2016-11-18 11:47] VITALS: BP 147/69
[2016-11-18 14:18] LABS: TROPONIN I < 0.30 ng/mL (<=0.30)
--- NOTE | 2016-11-18 14:35 | Cardiology Report ---
APPROVED REPORT EXAM: Two-dimensional and M-mode echocardiogram with Doppler and color Doppler. INDICATION Chest Pain M-Mode DIMENSIONS IVSd1.0 (0.7-1.1cm)Left Atrium (MM)4.4 (1.6-4.0cm) LVDd5.0 (3.5-5.6cm)Aortic Root2.8 (2.0-3.7cm) PWd1.1 (0.7-1.1cm)Aortic Cusp Exc.1.6 (1.5-2.0cm) LVDs3.3 (2.5-4.0cm) PWs1.4 cm Normal left ventricular chamber size, systolic function and wall motion. Left ventricular ejection fraction estimated to be 60 %. Mild left ventricular hypertrophy. Anterior Echo-free space, may be due to pericardial fat or effusion. Mild left atrial enlargement. Right cardiac chamber sizes are within normal limits. Mild focal aortic valve sclerosis with adequate cusp excursion. Mildly thickened mitral valve leaflets with normal excursion. Mitral annulus and aortic root calcification. Pulmonic valve not well visualized. Normal tricuspid valve structure. IVC at normal size with physiologic collapse. A color flow and spectral Doppler study was performed and revealed: Mild mitral regurgitation. Mitral diastolic velocities suggest reduced left ventricular relaxation c/w mild LV diastolic dysfunction (Grade I). Trace to mild tricuspid regurgitation. Tricuspid systolic velocities suggests peak right ventricular systolic pressure of 35 mmHg, consistent with borderline mild pulmonary hypertension. Trace pulmonic regurgitation present.
[2016-11-18 16:00] VITALS: BP 106/49
[2016-11-18 20:00] VITALS: BP 124/58
[2016-11-18] MEDS: Morphine Sulfate 4mg/ml Inj IVP PRN (20:39)
--- NOTE | 2016-11-18 21:19 | Cardiology Progress Note ---
Assessment/Plan Assessment/Plan chest pain dm htn hypre lipidmeia esrd depression ekg non specific pt poor historian multipl rf of rcad old record "neg perfusion november 2014" stress testnot complete today as vomitted to be preformed tomorrow echo prelim ok Subjective Cardiovascular: Denies: chest pain Respiratory: Denies: shortness of breath Gastrointestinal/Abdominal: Reports: nausea, vomiting, Denies: abdominal pain Genitourinary: Denies: burning Objective Last 24 Hour Vital Signs Date Time Temp Pulse Resp B/P Pulse Ox O2 Delivery O2 Flow Rate FiO2 11/18/16 20:00 99.0 69 20 124/58 95 Room Air 11/18/16 16:00 65 11/18/16 16:00 97.7 61 20 106/49 99 Room Air 11/18/16 14:07 147/69 11/18/16 12:00 62 11/18/16 11:47 97.0 68 20 147/69 95 Room Air 11/18/16 08:58 65 116/57 11/18/16 08:22 98.1 65 18 116/57 97 Room Air 11/18/16 08:21 65 116/57 11/18/16 08:00 64 11/18/16 05:39 132/68 11/18/16 04:07 98.5 84 18 132/68 96 Room Air 11/18/16 04:00 61 11/18/16 00:21 98.7 104 18 106/58 98 Room Air 11/18/16 00:00 63 11/18/16 00:00 106/58 General Appearance: no apparent distress, alert Cardiovascular: normal rate, regular rhythm Respiratory/Chest: lungs clear, normal breath sounds Abdomen: normal bowel sounds, non tender, soft Extremities: no swelling Intake and Output 11/17/16 11/18/16 19:00 07:00 Intake Total 90 ml 240 ml Balance 90 ml 240 ml Intake Oral 60 ml 240 ml IV Total 30 ml Laboratory Tests Test 11/18/16 00:00 11/18/16 06:35 11/18/16 13:50 Troponin I < 0.30 ng/mL (<=0.30) < 0.30 ng/mL (<=0.30) < 0.30 ng/mL (<=0.30) White Blood Count 5.7 K/UL (4.8-10.8) Red Blood Count 3.73 M/UL (4.20-5.40) L Hemoglobin 11.6 G/DL (12.0-16.0) L Hematocrit 35.9 % (37.0-47.0) L Mean Corpuscular Volume 96 FL (80-99) Mean Corpuscular Hemoglobin 31.1 PG (27.0-31.0) H Mean Corpuscular Hemoglobin Concent 32.3 G/DL (32.0-36.0) Red Cell Distribution Width 13.9 % (11.6-14.8) Platelet Count 192 K/UL (150-450) Mean Platelet Volume 7.0 FL (6.5-10.1) Neutrophils (%) (Auto) 47.6 % (45.0-75.0) Lymphocytes (%) (Auto) 36.4 % (20.0-45.0) Monocytes (%) (Auto) 10.5 % (1.0-10.0) H Eosinophils (%) (Auto) 3.9 % (0.0-3.0) H Basophils (%) (Auto) 1.6 % (0.0-2.0) Sodium Level 141 mEQ/L (135-145) Potassium Level 5.6 mEQ/L (3.4-4.9) H Chloride Level 94 mEQ/L (98-107) L Carbon Dioxide Level 33 mEQ/L (20-30) H Anion Gap 14 (5-15) Blood Urea Nitrogen 41 mg/dL (7-23) H Creatinine 7.0 mg/dL (0.5-0.9) H Estimat Glomerular Filtration Rate 6.1 mL/min (>60) Glucose Level 89 mg/dL (74-106) Hemoglobin A1c 6.5 % (< 6.0) H Calcium Level 9.0 mg/dL (8.6-10.2) Pro-B-Type Natriuretic Peptide 80739 pg/mL (0-125) H Triglycerides Level 102 mg/dL (< 150) Cholesterol Level 103 mg/dL (< 200) LDL Cholesterol 28 mg/dL (60-99) L HDL Cholesterol 55 mg/dL (> 60) Cholesterol/HDL Ratio 1.9 (3.3-4.4) L Thyroid Stimulating Hormone (TSH) 6.110 uIU/mL (0.300-4.500) MARY CORBETT Nov 18, 2016 21:18
[2016-11-18] MEDS: Atorvastatin 80mg tab ORAL SCH (22:12)
[2016-11-19] VITALS: BP 136/58
[2016-11-19 04:00] VITALS: BP 125/61
[2016-11-19] MEDS: HydrALAZINE 50mg tab ORAL SCH ×3 (06:00→22:35)
[2016-11-19] MEDS: NovoLOG Insulin Flexpen SUBQ SCH ×4 (06:20→22:36)
[2016-11-19 07:26] LABS: BASOPHILS % (AUTO) 1.1 % (0.0-2.0); EOSINOPHILS % (AUTO) 3.7 % (0.0-3.0); LYMPHOCYTES % (AUTO) 32.4 % (20.0-45.0); MEAN CORPUSCULAR HEMOGLOBIN 30.9 PG (27.0-31.0); MEAN CORPUSCULAR HGB CONC 32.8 G/DL (32.0-36.0); MEAN CORPUSCULAR VOLUME 94 FL (80-99); MEAN PLATELET VOLUME 6.9 FL (6.5-10.1); MONOCYTES % (AUTO) 10.6 % (1.0-10.0); NEUTROPHILS % (AUTO) 52.3 % (45.0-75.0); PLATELET COUNT 214 K/UL (150-450); RED BLOOD COUNT 3.72 M/UL (4.20-5.40); WHITE BLOOD COUNT 6.4 K/UL (4.8-10.8)
[2016-11-19 08:01] LABS: ALANINE AMINOTRANSFERASE 52 U/L (3-33); ALBUMIN/GLOBULIN RATIO 1.2 (1.0-2.7); ANION GAP 18 (5-15); ASPARTATE AMINO TRANSFERASE 57 U/L (5-40); CALCIUM 8.5 mg/dL (8.6-10.2); CARBON DIOXIDE 32 mEQ/L (20-30); CHLORIDE 90 mEQ/L (98-107); CHOLESTEROL 104 mg/dL (< 200); CHOLESTEROL/HDL RATIO 2.3 (3.3-4.4); CRP QUANT < 0.3 mg/dL (< 0.5); GLOMERULAR FILTRATION RATE 4.6 mL/min (>60); HEMOLYSIS 3; LDL CHOLESTEROL (CALC.) 29 mg/dL (60-99); MAGNESIUM 2.4 mg/dL (1.7-2.5); PHOSPHORUS 7.7 mg/dL (2.5-4.8); POTASSIUM 5.2 mEQ/L (3.4-4.9); SODIUM 140 mEQ/L (135-145); TOTAL PROTEIN 6.4 g/dL (6.6-8.7); URIC ACID 6.1 mg/dL (3.0-7.5)
[2016-11-19 08:03] VITALS: BP 130/52
[2016-11-19 08:11] LABS: HEMOGLOBIN A1C 6.3 % (< 6.0)
[2016-11-19] MEDS: Aspirin Baby 81mg ORAL SCH (08:47)
[2016-11-19] MEDS: Metoprolol 25mg tab ORAL SCH ×2 (08:47→22:35)
[2016-11-19] MEDS: Docusate 100mg cap ORAL SCH ×3 (08:47→17:59)
[2016-11-19] MEDS: Renvela 800mg Pkt ORAL SCH ×3 (08:47→17:59)
--- NOTE | 2016-11-19 09:05 | General Progress Note ---
Assessment/Plan Problem List: (1) Chest pain ICD Codes: R07.9 - Chest pain, unspecified SNOMED: 02364848 (2) Hyperkalemia ICD Codes: E87.5 - Hyperkalemia SNOMED: 78466394 (3) ESRD (end stage renal disease) on dialysis ICD Codes: N18.6 - End stage renal disease; Z99.2 - Dependence on renal dialysis SNOMED: 713521517 (4) HTN (hypertension) ICD Codes: I10 - Essential (primary) hypertension SNOMED: 73665733 (5) HLD (hyperlipidemia) ICD Codes: E78.5 - Hyperlipidemia, unspecified SNOMED: 75128891 (6) Diabetes ICD Codes: E11.9 - Type 2 diabetes mellitus without complications SNOMED: 05947378 Qualifiers: Status: stable Assessment/Plan Chest pain - ddx includes anginal vs GI etiology vs MSK vs anxiety. Trop/EKG neg x3 so no e/o ACS. - Monitor on tele - F/u MPI - Appreciate cardiology rec's - s/p kayexylate in ED for hyperkalemia - Nephrology consulted for continuation of HD in-house - Plan for HD today - Con ASA, statin - Cont home BP meds - Cont sevelamer - CAIO DVT Prophylaxis: SCD, HSQ Code Status: Full Hospital Classification Declaration: Based on this initial evaluation, and depending on the patient's clinical course, I anticipate that this patient will require hospitalization for 1-2 days for chest pain, hyperkalemia, and close respiratory/hemodynamic monitoring. Disposition: Once the patient is stable to leave the hospital, I anticipate the patient will likely be discharged to the following environment: home with HH vs SNF I spent 40 minutes on this patient's case, and 22 minutes were dedicated to counseling and/or care coordination. Discussed with patient/family, nursing staff, SW/CM, cardiology regarding clinical status, treatment course, and disposition planning. Time of note may not reflect time of encounter. Subjective Date patient seen: Nov 19, 2016 Time patient seen: 09:05 ROS Limited/Unobtainable: No Constitutional: Reports: no symptoms HEENT: Reports: no symptoms Cardiovascular: Reports: no symptoms Respiratory: Reports: no symptoms Gastrointestinal/Abdominal: Reports: no symptoms Genitourinary: Reports: no symptoms Neurologic/Psychiatric: Reports: no symptoms Endocrine: Reports: no symptoms Hematologic/Lymphatic: Reports: no symptoms Allergies: Coded Allergies: ACETAMINOPHEN (Verified Allergy, Unknown, 11/17/16) All Systems: reviewed and negative except above Subjective No acute o/n events Unable to do MPI yesterday given nausea. Will attempt again today Chest pain improved Plan for HD today Objective Last 24 Hour Vital Signs Date Time Temp Pulse Resp B/P Pulse Ox O2 Delivery O2 Flow Rate FiO2 11/19/16 08:03 98.1 62 18 130/52 98 Room Air 11/19/16 06:00 125/61 11/19/16 04:00 97.1 64 18 125/61 97 Room Air 11/19/16 04:00 60 11/19/16 00:00 59 11/19/16 00:00 98.1 61 18 136/58 97 Room Air 11/18/16 22:12 124/58 11/18/16 21:00 69 124/58 11/18/16 20:00 99.0 69 20 124/58 95 Room Air 11/18/16 20:00 61 11/18/16 16:00 65 11/18/16 16:00 97.7 61 20 106/49 99 Room Air 11/18/16 14:07 147/69 11/18/16 12:00 62 11/18/16 11:47 97.0 68 20 147/69 95 Room Air Intake and Output 11/18/16 11/19/16 19:00 07:00 Intake Total 120 ml 200 ml Balance 120 ml 200 ml Intake Oral 120 ml 200 ml Laboratory Tests 11/18/16 13:50: Troponin I < 0.30 11/19/16 05:30: White Blood Count 6.4, Red Blood Count 3.72L, Hemoglobin 11.5L, Hematocrit 35.0L , Mean Corpuscular Volume 94, Mean Corpuscular Hemoglobin 30.9, Mean Corpuscular Hemoglobin Concent 32.8, Red Cell Distribution Width 14.0, Platelet Count 214, Mean Platelet Volume 6.9, Neutrophils (%) (Auto) 52.3, Lymphocytes (% ) (Auto) 32.4, Monocytes (%) (Auto) 10.6H, Eosinophils (%) (Auto) 3.7H, Basophils (%) (Auto) 1.1, Sodium Level 140, Potassium Level 5.2H, Chloride Level 90L, Carbon Dioxide Level 32H, Anion Gap 18H, Blood Urea Nitrogen 53H, Creatinine 9.0H, Estimat Glomerular Filtration Rate 4.6, Glucose Level 72L, Hemoglobin A1c 6.3H, Uric Acid 6.1, Calcium Level 8.5L, Phosphorus Level 7.7H, Magnesium Level 2.4, Total Bilirubin 0.3, Gamma Glutamyl Transpeptidase 100H, Aspartate Amino Transf (AST/SGOT) 57H, Alanine Aminotransferase (ALT/SGPT) 52H, Alkaline Phosphatase 162H, Total Creatine Kinase 64, C-Reactive Protein, Quantitative < 0.3, Pro-B-Type Natriuretic Peptide 76087A, Total Protein 6.4L, Albumin 3.5, Globulin 2.9, Albumin/Globulin Ratio 1.2, Triglycerides Level 151H , Cholesterol Level 104, LDL Cholesterol 29L, HDL Cholesterol 45, Cholesterol/ HDL Ratio 2.3L, Thyroid Stimulating Hormone (TSH) 3.470 Height (Feet): 5 Height (Inches): 2.00 Weight (Pounds): 150 Objective General: alert, cooperative, no distress, appears stated age Head: normocephalic, without obvious abnormality, atraumatic Eyes: conjunctivae/corneas clear. PERRL, EOM's intact Throat: lips, mucosa, and tongue normal. MMM Neck: supple, symmetrical, trachea midline, and no JVD Lungs: clear to auscultation bilaterally Heart: regular rate and rhythm, S1, S2 normal, no murmur, click, rub or gallop Abdomen: soft, non-tender, non-distended, bowel sounds normal; no masses or organomegaly Extremities: extremities normal, atraumatic, no cyanosis or edema Pulses: 2+ and symmetric Skin: skin color, texture, turgor normal; no rashes or lesions Neurologic: grossly normal, no focal deficits Fransisco Meyer M.D. Nov 19, 2016 09:05
--- NOTE | 2016-11-19 09:35 | General Progress Note ---
Assessment/Plan Status: stable Status Narrative K 5.2 LFTs elevated ! Assessment/Plan status; ESRD ACS High K High A1c elevated LFTs plan: HD today- Phos binders Renal diet- BP meds adjustments- 2 D echo Per cardiology Subjective ROS Limited/Unobtainable: No Constitutional: Reports: malaise Allergies: Coded Allergies: ACETAMINOPHEN (Verified Allergy, Unknown, 11/17/16) Objective Last 24 Hour Vital Signs Date Time Temp Pulse Resp B/P Pulse Ox O2 Delivery O2 Flow Rate FiO2 11/19/16 08:03 98.1 62 18 130/52 98 Room Air 11/19/16 06:00 125/61 11/19/16 04:00 97.1 64 18 125/61 97 Room Air 11/19/16 04:00 60 11/19/16 00:00 59 11/19/16 00:00 98.1 61 18 136/58 97 Room Air 11/18/16 22:12 124/58 11/18/16 21:00 69 124/58 11/18/16 20:00 99.0 69 20 124/58 95 Room Air 11/18/16 20:00 61 11/18/16 16:00 65 11/18/16 16:00 97.7 61 20 106/49 99 Room Air 11/18/16 14:07 147/69 11/18/16 12:00 62 11/18/16 11:47 97.0 68 20 147/69 95 Room Air Intake and Output 11/18/16 11/19/16 19:00 07:00 Intake Total 120 ml 200 ml Balance 120 ml 200 ml Intake Oral 120 ml 200 ml Laboratory Tests 11/18/16 13:50: Troponin I < 0.30 11/19/16 05:30: White Blood Count 6.4, Red Blood Count 3.72L, Hemoglobin 11.5L, Hematocrit 35.0L , Mean Corpuscular Volume 94, Mean Corpuscular Hemoglobin 30.9, Mean Corpuscular Hemoglobin Concent 32.8, Red Cell Distribution Width 14.0, Platelet Count 214, Mean Platelet Volume 6.9, Neutrophils (%) (Auto) 52.3, Lymphocytes (% ) (Auto) 32.4, Monocytes (%) (Auto) 10.6H, Eosinophils (%) (Auto) 3.7H, Basophils (%) (Auto) 1.1, Sodium Level 140, Potassium Level 5.2H, Chloride Level 90L, Carbon Dioxide Level 32H, Anion Gap 18H, Blood Urea Nitrogen 53H, Creatinine 9.0H, Estimat Glomerular Filtration Rate 4.6, Glucose Level 72L, Hemoglobin A1c 6.3H, Uric Acid 6.1, Calcium Level 8.5L, Phosphorus Level 7.7H, Magnesium Level 2.4, Total Bilirubin 0.3, Gamma Glutamyl Transpeptidase 100H, Aspartate Amino Transf (AST/SGOT) 57H, Alanine Aminotransferase (ALT/SGPT) 52H, Alkaline Phosphatase 162H, Total Creatine Kinase 64, C-Reactive Protein, Quantitative < 0.3, Pro-B-Type Natriuretic Peptide 85496I, Total Protein 6.4L, Albumin 3.5, Globulin 2.9, Albumin/Globulin Ratio 1.2, Triglycerides Level 151H , Cholesterol Level 104, LDL Cholesterol 29L, HDL Cholesterol 45, Cholesterol/ HDL Ratio 2.3L, Thyroid Stimulating Hormone (TSH) 3.470 Height (Feet): 5 Height (Inches): 2.00 Weight (Pounds): 150 General Appearance: no apparent distress Cardiovascular: normal rate Respiratory/Chest: lungs clear RAGHAVENDRA ARIZMENDI Nov 19, 2016 09:35
[2016-11-19 11:25] VITALS: BP 130/45
--- NOTE | 2016-11-19 11:36 | Diagnostic Imaging Report ---
Indication: Chest pain Technique: Resting images obtained using IV administration 10.3 mCi 99M technetium Myoview. SPECT images obtained. Patient was scheduled for stress imaging, but this was subsequently canceled by referring physician Comparison: None Findings: Available resting only images demonstrate a large perfusion defect involving much of the inferolateral wall near the apex. Smaller anteroseptal perfusion defect in the apex is also demonstrated. Left ventricle is dilated. Impression: Positive for large inferolateral and smaller anteroseptal infarcts. Unable to assess for ischemia, due to absence of post stress imaging Left ventricular dilatation A preliminary report was previously provided overnight on the PACS
[2016-11-19 16:00] VITALS: BP 152/73
[2016-11-19 20:00] VITALS: BP 133/52
[2016-11-19] MEDS ORDERED: DOBUTamine 250mg/250ml Premix IV ONE (22:30)
[2016-11-19] MEDS: Atorvastatin 80mg tab ORAL SCH (22:34)
[2016-11-19] MEDS: traMADol 50mg tab ORAL PRN (22:56)
[2016-11-20] VITALS: BP 117/55
[2016-11-20] MEDS: Morphine Sulfate 2mg/ml Inj IVP PRN (01:34)
--- NOTE | 2016-11-20 03:10 | Cardiology Report ---
APPROVED REPORT EKG Measurement Heart [id number] Normal sinus rhythm Abnormal QRS-T angle, consider primary T wave abnormality Abnormal ECG
[2016-11-20 04:05] VITALS: BP 151/77
[2016-11-20] MEDS: traMADol 50mg tab ORAL PRN (04:32)
[2016-11-20] MEDS: HydrALAZINE 50mg tab ORAL SCH ×2 (06:02→14:01)
[2016-11-20] MEDS: NovoLOG Insulin Flexpen SUBQ SCH ×2 (06:14→11:09)
[2016-11-20] MEDS: Morphine Sulfate 4mg/ml Inj IVP PRN (06:36)
[2016-11-20 07:16] LABS: BASOPHILS % (AUTO) 1.1 % (0.0-2.0); EOSINOPHILS % (AUTO) 2.7 % (0.0-3.0); LYMPHOCYTES % (AUTO) 23.8 % (20.0-45.0); MEAN CORPUSCULAR HEMOGLOBIN 31.1 PG (27.0-31.0); MEAN CORPUSCULAR HGB CONC 32.8 G/DL (32.0-36.0); MEAN CORPUSCULAR VOLUME 95 FL (80-99); MEAN PLATELET VOLUME 6.8 FL (6.5-10.1); MONOCYTES % (AUTO) 10.3 % (1.0-10.0); NEUTROPHILS % (AUTO) 62.1 % (45.0-75.0); PLATELET COUNT 222 K/UL (150-450); RED BLOOD COUNT 3.79 M/UL (4.20-5.40); RED CELL DISTRIBUTION WIDTH 13.9 % (11.6-14.8); WHITE BLOOD COUNT 7.3 K/UL (4.8-10.8)
[2016-11-20 07:43] LABS: CALCIUM 8.7 mg/dL (8.6-10.2); GLOMERULAR FILTRATION RATE 6.1 mL/min (>60); PHOSPHORUS 5.8 mg/dL (2.5-4.8); POTASSIUM 4.7 mEQ/L (3.4-4.9); TOTAL PROTEIN 6.9 g/dL (6.6-8.7)
[2016-11-20 08:00] VITALS: BP 144/60
[2016-11-20] MEDS: Docusate 100mg cap ORAL SCH ×2 (09:05→12:11)
[2016-11-20] MEDS: Metoprolol 25mg tab ORAL SCH (09:05)
[2016-11-20] MEDS: Aspirin Baby 81mg ORAL SCH (09:05)
[2016-11-20] MEDS: Renvela 800mg Pkt ORAL SCH ×2 (09:06→12:11)
--- NOTE | 2016-11-20 10:46 | Cardiology Progress Note ---
Assessment/Plan Assessment/Plan chest pain dm htn hyperlipidemia esrd depression ekg non specific pt poor historian multipl rf for cad old record "neg perfusion november 2014" echo ok perfusion imaging neg ok to dc home from cardiac view point Subjective Cardiovascular: Denies: chest pain, lightheadedness, palpitations Respiratory: Denies: shortness of breath Gastrointestinal/Abdominal: Denies: abdominal pain Genitourinary: Denies: burning Objective Last 24 Hour Vital Signs Date Time Temp Pulse Resp B/P Pulse Ox O2 Delivery O2 Flow Rate FiO2 11/20/16 09:05 64 144/60 11/20/16 09:03 64 144/60 11/20/16 08:08 64 11/20/16 08:00 96.7 64 18 144/60 95 Room Air 11/20/16 06:02 151/77 11/20/16 04:05 98.0 64 20 151/77 98 Room Air 11/20/16 04:00 60 11/20/16 00:00 66 11/20/16 00:00 98.2 63 20 117/55 95 11/19/16 22:35 133/52 11/19/16 22:35 67 123/52 11/19/16 20:00 99.1 67 20 133/52 93 Room Air 11/19/16 20:00 67 11/19/16 18:39 Room Air 2.0 11/19/16 18:39 Room Air 2.0 11/19/16 18:34 Room Air 11/19/16 16:00 97.9 61 18 152/73 98 Room Air 11/19/16 16:00 61 11/19/16 14:45 Room Air 11/19/16 12:00 61 11/19/16 11:25 98.8 64 18 130/45 99 Room Air General Appearance: no apparent distress, alert, obese Neck: supple Cardiovascular: normal rate, regular rhythm Respiratory/Chest: lungs clear, normal breath sounds Abdomen: normal bowel sounds, non tender, soft Extremities: no swelling Intake and Output 11/19/16 11/20/16 18:59 06:59 Intake Total 430 ml 370 ml Output Total 4600 ml Balance -4170 ml 370 ml Intake Oral 400 ml 370 ml IV Total 30 ml Output Hemodialysis UF 4600 ml # Voids 4 Laboratory Tests Test 11/20/16 06:00 White Blood Count 7.3 K/UL (4.8-10.8) Red Blood Count 3.79 M/UL (4.20-5.40) L Hemoglobin 11.8 G/DL (12.0-16.0) L Hematocrit 35.8 % (37.0-47.0) L Mean Corpuscular Volume 95 FL (80-99) Mean Corpuscular Hemoglobin 31.1 PG (27.0-31.0) H Mean Corpuscular Hemoglobin Concent 32.8 G/DL (32.0-36.0) Red Cell Distribution Width 13.9 % (11.6-14.8) Platelet Count 222 K/UL (150-450) Mean Platelet Volume 6.8 FL (6.5-10.1) Neutrophils (%) (Auto) 62.1 % (45.0-75.0) Lymphocytes (%) (Auto) 23.8 % (20.0-45.0) Monocytes (%) (Auto) 10.3 % (1.0-10.0) H Eosinophils (%) (Auto) 2.7 % (0.0-3.0) Basophils (%) (Auto) 1.1 % (0.0-2.0) Sodium Level 143 mEQ/L (135-145) Potassium Level 4.7 mEQ/L (3.4-4.9) Chloride Level 94 mEQ/L (98-107) L Carbon Dioxide Level 33 mEQ/L (20-30) H Anion Gap 16 (5-15) H Blood Urea Nitrogen 35 mg/dL (7-23) H Creatinine 7.0 mg/dL (0.5-0.9) H Estimat Glomerular Filtration Rate 6.1 mL/min (>60) Glucose Level 106 mg/dL (74-106) Calcium Level 8.7 mg/dL (8.6-10.2) Phosphorus Level 5.8 mg/dL (2.5-4.8) H Total Bilirubin 0.4 mg/dL (0.0-1.2) Aspartate Amino Transf (AST/SGOT) 36 U/L (5-40) Alanine Aminotransferase (ALT/SGPT) 40 U/L (3-33) H Alkaline Phosphatase 156 U/L (35-104) H Total Protein 6.9 g/dL (6.6-8.7) Albumin 3.6 g/dL (3.5-5.2) Globulin 3.3 g/dL Albumin/Globulin Ratio 1.0 (1.0-2.7) Microbiology Date/Time Source Procedure Growth Status 11/17/16 20:35 Nasal Nares MRSA Culture - Final NO METHICILLIN RESISTANT STAPH AUREUS... Complete 11/17/16 20:35 Rectum VRE Culture - Final NO VANCOMYCIN RESISTANT ENTEROCOCCUS ... Complete MARY CORBETT Nov 20, 2016 10:46
[2016-11-20 11:23] VITALS: BP 121/55
--- NOTE | 2016-11-20 11:58 | General Progress Note ---
Assessment/Plan Status: stable Assessment/Plan status; ESRD ACS High K High A1c elevated LFTs Plan: HD 11/19 next 11/22 Phos binders Renal diet- BP meds adjustments- 2 D echo : Left ventricular ejection fraction estimated to be 60 %. Mild left ventricular hypertrophy. Per cardiology Subjective ROS Limited/Unobtainable: No Constitutional: Reports: malaise Allergies: Coded Allergies: ACETAMINOPHEN (Verified Allergy, Unknown, 11/17/16) Objective Last 24 Hour Vital Signs Date Time Temp Pulse Resp B/P Pulse Ox O2 Delivery O2 Flow Rate FiO2 11/20/16 11:23 98.1 58 18 121/55 98 Room Air 11/20/16 09:05 64 144/60 11/20/16 09:03 64 144/60 11/20/16 08:08 64 11/20/16 08:00 96.7 64 18 144/60 95 Room Air 11/20/16 06:02 151/77 11/20/16 04:05 98.0 64 20 151/77 98 Room Air 11/20/16 04:00 60 11/20/16 00:00 66 11/20/16 00:00 98.2 63 20 117/55 95 11/19/16 22:35 133/52 11/19/16 22:35 67 123/52 11/19/16 20:00 99.1 67 20 133/52 93 Room Air 11/19/16 20:00 67 11/19/16 18:39 Room Air 2.0 11/19/16 18:39 Room Air 2.0 11/19/16 18:34 Room Air 11/19/16 16:00 97.9 61 18 152/73 98 Room Air 11/19/16 16:00 61 11/19/16 14:45 Room Air 11/19/16 12:00 61 Intake and Output 11/19/16 11/20/16 19:00 07:00 Intake Total 430 ml 370 ml Output Total 4600 ml Balance -4170 ml 370 ml Intake Oral 400 ml 370 ml IV Total 30 ml Output Hemodialysis UF 4600 ml # Voids 4 Laboratory Tests 11/20/16 06:00: White Blood Count 7.3, Red Blood Count 3.79L, Hemoglobin 11.8L, Hematocrit 35.8L , Mean Corpuscular Volume 95, Mean Corpuscular Hemoglobin 31.1H, Mean Corpuscular Hemoglobin Concent 32.8, Red Cell Distribution Width 13.9, Platelet Count 222, Mean Platelet Volume 6.8, Neutrophils (%) (Auto) 62.1, Lymphocytes (% ) (Auto) 23.8, Monocytes (%) (Auto) 10.3H, Eosinophils (%) (Auto) 2.7, Basophils (%) (Auto) 1.1, Sodium Level 143, Potassium Level 4.7, Chloride Level 94L, Carbon Dioxide Level 33H, Anion Gap 16H, Blood Urea Nitrogen 35H, Creatinine 7.0H, Estimat Glomerular Filtration Rate 6.1, Glucose Level 106, Calcium Level 8.7, Phosphorus Level 5.8H, Total Bilirubin 0.4, Aspartate Amino Transf (AST/SGOT) 36, Alanine Aminotransferase (ALT/SGPT) 40H, Alkaline Phosphatase 156H, Total Protein 6.9, Albumin 3.6, Globulin 3.3, Albumin/ Globulin Ratio 1.0 Height (Feet): 5 Height (Inches): 2.00 Weight (Pounds): 150 General Appearance: no apparent distress Objective no change in physical exam RAGHAVENDRA ARIZMENDI Nov 20, 2016 11:58
[2016-11-20] MEDS ORDERED: ASPIRIN81 MG ORAL (12:32)
--- NOTE | 2016-11-20 12:34 | Discharge Summary ---
Discharge Summary Hospital Course Date of Admission Nov 17, 2016 at 14:55 Date of Discharge 11/20/16 Admitting Diagnosis chest pain Reason for Hospitalization: r/o ACS, hyperkalemia HPI 6yo female with pmh of ESRD on HD (MWF), DM, HTN, HLD who presents w/ chest pain. Pt c/o L sided sharp sensation in chest that started abt 1/2 way through dialysis today. She has never had chest pain before. She denies associated f/c, n/v, cough, abd pain. Occasional SOB, palpitations, dizziness. She states she has been stressed and anxious recently since her daughter is trying to send her to a senior care. She lives w/ her sister. She is functional and able to do all ADLs on own. She does not exercise much. Consultations Cardiology Nephrology Hospital Course Pt was admitted to [facility] and ruled out for ACS with serial trop/EKG. Pt was seen by cardiology. TTE showed normal EF. Given risk factors, pt underwent nuclear stress test which was negative. Pt was cleared for discharge home per cardiology. Pt also with hyperkalemia. Valsartan was held. Hyperkalemia improved with kayexylate and dialysis. Pt was instructed to hold Valsartan at this time. Pt also noted to be depressed. She was provided counseling. Pt was given outpatient mental health resources for counseling. She deferred initiation of antidepressant at this time. Discharge Medications New Medications: Aspirin* (Aspirin*) 81 Mg Tab.chew 81 MG ORAL DAILY for 30 Days, TAB Continued Medications: Amlodipine Besylate* (Amlodipine Besylate*) 10 Mg Tablet 10 MG ORAL DAILY, TAB Atorvastatin Calcium* (Atorvastatin Calcium*) 40 Mg Tablet 40 MG ORAL BEDTIME, TAB Docusate Sodium* (Colace*) 100 Mg Capsule 100 MG ORAL BID, CAP Hydralazine Hcl* (Hydralazine Hcl*) 50 Mg Tablet 50 MG ORAL QID, TAB Insulin Detemir (Levemir) 100 Unit/1 Ml Vial 12 UNITS SUBQ BID, VIAL Metoprolol Tartrate* (Metoprolol Tartrate*) 25 Mg Tablet 25 MG ORAL EVERY 12 HOURS, TAB Pantoprazole* (Pantoprazole*) 40 Mg Tablet.dr 40 MG ORAL DAILY, TAB Sevelamer Carbonate* (Renvela*) 0.8 Gm Powd.pack 1600 MG ORAL THREE TIMES A DAY, PACK Tramadol Hcl* (Ultram*) 50 Mg Tablet 50 MG ORAL DAILY PRN for For Pain, #30 TAB 0 Refills Unable to Obtain Medications (Unable To Obtain Meds) 1 Ea Ea [Aspirin Free Anacin] () 1 TAB ORAL DAILY Discontinued Medications: Valsartan (Diovan) 160 Mg Tablet 320 MG ORAL DAILY, TAB Discharge Condition Upon Discharge: stable Discharge Disposition Patient was discharged to home with home health Discharge Diagnoses: (1) Atypical chest pain (2) Hyperkalemia (3) ESRD (end stage renal disease) on dialysis Fransisco Meyer M.D. Nov 20, 2016 12:33
[2016-11-20 14:01] VITALS: BP 121/55
--- NOTE | 2016-11-22 08:36 | Diagnostic Imaging Report ---
Indication: 56-year-old female with chest pain and hypertension Technique: Resting images were obtained previously, at which time stress images were canceled, that exam is reported separately. Patient subsequently returned for dobutamine stress testing. During infusion, IV administration 29.4 mCi of 99m technetium Myoview. SPECT images were obtained. SPECT images gated to 8 phases of the cardiac cycle also obtained, and reformatted into same images. Ejection fraction was computer calculated Comparison: Reference made to resting images of the previous day Findings: Presence or absence of symptoms during the stress testing is not described on the cardiology report. Cardiology report describes normal sinus rhythm on resting EKG, ST-T wave abnormality, consider lateral ischemia. Presence or absence of ST changes on stress testing is not described on the cardiology report. Patient achieved a heart rate of 131 beats per minute, just short of the target rate of 141. Imaging demonstrates no definite post stress perfusion defects. In fact, the original resting images demonstrated large inferolateral and smaller anteroseptal perfusion defects which are not evident on the poststress images, most likely represent artifacts. There is mild left ventricular dilatation, but the calculated post stress ejection fraction is 70% and no focal wall motion abnormality is evident. Impression: Nonischemic clinical response four-quadrant stress, according to cardiology report Nonischemic Response to pharmacologic stress, per cardiology report No evidence of ischemia, at level of stress achieved. Suspect that resting perfusion defects described on exam were artifactual as they are not visualized on the poststress images Calculated ejection fraction 70%
== END 2016-11-20 14:34 | disposition home or self-care (01) | DRG 640 ==
LOC: EDBD 13:38 → EMR 14:05 → 2E 14:55 → EDBEDREQ 15:17 → 2E 17:45
PROC: 5A1D00Z (ICD-10-PCS; principal; 2016-11-19)
DX: E87.5 Hyperkalemia (principal); N18.6 End stage renal disease; I12.0 Hypertensive chronic kidney disease with stage 5 chronic kidney disease or end stage renal disease; Z99.2 Dependence on renal dialysis; E78.5 Hyperlipidemia, unspecified; E11.9 Type 2 diabetes mellitus without complications; K21.9 Gastro-esophageal reflux disease without esophagitis; F32.9 Major depressive disorder, single episode, unspecified; Z88.8 Allergy status to other drugs, medicaments and biological substances; Z88.6 Allergy status to analgesic agent; R07.89 Other chest pain; E03.9 Hypothyroidism, unspecified
CPT/HCPCS: 36415; 36600; 71010; 78451; 78452; 80048; 80053; 80061; 82550; 82553; 82803; 82962; 82977; 83036; 83735; 83880; 84100; 84443; 84484; 84550; 85025; 85379; 86140; 87081; 93005; 93017; 93306; 94644; J1815; J2405; J7620